=== PATIENT | female | born 1995 | race Caucasian/White ===

== ENCOUNTER 2025-05-24 18:00 | Emergency (ER) | payer BC, SELFPAY ==
[2025-05-24 18:11] VITALS: BP 128/84
--- NOTE | 2025-05-24 20:10 | ED.GENMED ---
History of Present Illness
General
Chief Complaint: Back Pain
Time Seen by Provider: 05/24/25 19:56
History of Present Illness
History of Present Illness:
29-year-old female presents to the emergency department for evaluation of lower back and tailbone pain after falling on her buttocks while rollerblading. She denies any lower extremity paresthesias or loss of urinary continence. Did not take any
medication prior to arrival. She is able to bear weight with discomfort
Review of Systems
Review of Systems
Allergies reviewed?: Yes
All Other Systems: ROS reviewed and negative except as documented in HPI and ROS
Phy Exam
Physical Exam
Physical Exam:
GEN: Well appearing, NAD, WDWN
HEENT: Oral mucosa moist, no scleral icterus
Cardiac: Regular rate
Lung: No respiratory distress, no tachypnea
MSK: No gross deformity or injuries. Mild tenderness to the inferior lumbar spine and coccygeal region without palpable deformity. Bilateral lower extremity strength is 5 out of 5 in all singh and symmetric
Skin: Good color, no pallor or jaundice, no rashes
Neuro: AO x3, moves all extremities freely
Psych: Calm, cooperative
Course
Orders/Labs/Results
Orders:
Orders
05/24/25 18:14
CR Lumbar Spine Comp Min 4 Vw* Urgent
Comment:
Reason For Exam: fall onto buttocks while rollerblading
CR Sacrum/coccyx Min 2 View Urgent
Comment:
Reason For Exam: fall onto buttocks while rollerblading
05/24/25 20:09
Cyclobenzaprine HCl [Flexeril] 10 mg PO NOW STA
Ketorolac [Toradol] 30 mg IM NOW STA
Vital Signs
Initial and Last Documented VS:
Initial Vital Signs
Temp Pulse Resp BP Pulse Ox
98.5 F 110 18 128/84 98
05/24/25 18:11 05/24/25 18:11 08/30/25 18:11 05/24/25 18:11 05/24/25 18:11
Last Documented Vital Signs
Temp Pulse Resp BP Pulse Ox
98.5 F 110 18 128/84 98
05/24/25 18:11 05/24/25 18:11 05/24/25 18:11 05/24/25 18:11 05/24/25 20:11
MDM/Problems Addressed
MDM/Problems Addressed:
X-rays of the lumbar spine reveal a minor L1 compression fracture, discussed supportive care, encourage patient to follow-up with her primary care physician in 1 to 2 weeks for reevaluation and consideration of physical therapy if needed
*Pulse Oximetry
SaO2: 98
Oxygen Mode of Delivery: Room air
Patient hypoxic: no
*Critical Care Note
Total Time (30-74mins, 75-104mins- exclusive of procedures): Not Applicable
ED Attending Note
-
Portions of this chart may have been created with voice recognition software.� Occasional wrong word or��sound alike� substitutions may have occurred due to the inherent limitations of voice recognition software.
Discharge Plan
Departure
Patient Disposition: Home (Routine Discharge)
Date of Disposition: 05/24/25
Time of Disposition: 20:13
Patient with high blood pressure during this ER visit?: No
Discharge Problem:
Contusion of sacrum, Compression fracture of lumbar vertebra
Instructions: Low Back Pain (DC)
Prescriptions:
New
diclofenac sodium 75 mg tablet,delayed release (DR/EC)
75 mg PO BID PRN (Reason: Pain) Qty: 20 0RF
methocarbamol 750 mg tablet
750 mg PO Q8H PRN (Reason: muscle spasm) Qty: 15 0RF
Activity Restrictions/Additional Instructions:
Ice the area often to reduce pain
Avoid exertional activities but be sure to remain somewhat active to avoid muscle stiffness
Interventions
Interventions:
*Risk Screen - Suicide Last Done: 05/24/25 18:11
*General Assessment Last Done: 05/24/25 18:11
*Neglect/Abuse Screening Last Done: 05/24/25 18:11
*ED COVID-19 Vaccine History Last Done: 05/24/25 18:11
Discharge Date and Time
Print Language: [place]
[2025-05-24] MEDS: TORADOL 30 MG IM (20:38)
[2025-05-24] MEDS: FLEXERIL 10 MG PO (20:38)
== END 2025-05-24 21:23 | disposition home or self-care (01) ==
LOC: EMR 18:00
PROVIDERS: EMERGENCY PHYSICIAN Emergency Medicine; FAMILY PHYSICIAN Nurse Practitioner Family
DX: S30.0XXA Contusion of lower back and pelvis, initial encounter (principal); M48.56XA Collapsed vertebra, not elsewhere classified, lumbar region, initial encounter for fracture; W18.39XA Other fall on same level, initial encounter; Y93.51 Activity, roller skating (inline) and skateboarding
CPT/HCPCS: 99284; 96372; 72110; 72220

== ENCOUNTER → 2025-06-02 14:53 | Outpatient (REF) | payer BC, SELFPAY | LOC: HWRAD 14:53 | PROVIDERS: ATTENDING PHYSICIAN Family Medicine; FAMILY PHYSICIAN Nurse Practitioner Family | DX: S32.019S Unspecified fracture of first lumbar vertebra, sequela (principal) | CPT/HCPCS: 72131 ==

== ENCOUNTER → 2025-08-29 16:16 | Outpatient (REF) | payer BC, SELFPAY | LOC: RAD 16:16 | PROVIDERS: ATTENDING PHYSICIAN Physician Assistant; FAMILY PHYSICIAN Nurse Practitioner Family | DX: S32.010D Wedge compression fracture of first lumbar vertebra, subsequent encounter for fracture with routine healing (principal); S32.10XD Unspecified fracture of sacrum, subsequent encounter for fracture with routine healing | CPT/HCPCS: 72110; 72190 ==